=== PATIENT | male | born 1945 | race Caucasian/White ===

== ENCOUNTER 2017-04-02 12:09 | Emergency (ER) | payer MEDICARE, OTHER ==
--- NOTE | 2017-04-02 12:56 | ED Physician Documentation ---
PD HPI OPHTHO - Stated complaint Stated Complaint: R EYE IRRITATION - Chief complaint Chief Complaint: Heent - History obtained from History obtained from: Patient - History of Present Illness Timing - onset: Yesterday Timing - duration: Days (1) Timing - details: Abrupt onset (noted some crescentic peripheral flashes yesterday intermittently on right eye, and today felt that he had a small floater, like a line of darkness at edge upper outer. Less flashes today. Central vision okay, and does not sense a curtain type configuration of the deficit.), Still present Location: Right Associated symptoms: Other (flashes of lights intermittently at upper outer peripheral right eye.). No: Redness, Loss of vision, Headache Contributing factors: No: FB, Blunt trauma, Wears contacts Similar symptoms before: Has not had sx before Recently seen: Not recently seen Review of Systems Constitutional: denies: Fever, Chills Eyes: denies: Loss of vision, Decreased vision, Photophobia, Discharge, Irritation Nose: denies: Rhinorrhea / runny nose, Congestion Throat: denies: Sore throat Respiratory: denies: Cough Neurologic: denies: Focal weakness, Numbness, Headache, Head injury PD PAST MEDICAL HISTORY - Past Medical History Past Medical History: Yes Cardiovascular: Hypertension, High cholesterol Respiratory: Other Neuro: Seizure disorder Other Past Medical History: seasonal allergies. - Past Surgical History Past Surgical History: Yes General: Other - Present Medications Home Medications: Ambulatory Orders Medication Instructions Recorded Confirmed Atorvastatin [Lipitor] 10 mg ORAL DAILY 04/02/17 04/02/17 Ezetimibe [Zetia] 10 mg PO QD 04/02/17 04/02/17 Fluticasone [Flonase] 1 sprays AMY DAILY 04/02/17 04/02/17 Tadalafil [Cialis] 5 mg PO DAILY 04/02/17 04/02/17 Tamsulosin [Flomax] 0.4 mg PO ONCE 04/02/17 04/02/17 carBAMazepine [TEGretol] 100 mg PO BID 04/02/17 04/02/17 - Allergies Allergies/Adverse Reactions: Allergies Allergy/AdvReac Type Severity Reaction Status Date / Time Penicillins Allergy Unknown Verified 04/02/17 12:19 Sulfa (Sulfonamide Allergy Rash Verified 04/02/17 12:19 Antibiotics) - Social History Does the pt smoke?: No Smoking Status: Never smoker Does the pt drink ETOH?: Yes ETOH Use: Beer, Liquor Does the pt have substance abuse?: No - Immunizations Immunizations are current?: Yes - POLST Patient has POLST: No PD ED PE NORMAL - Vitals Vital signs reviewed: Yes - General General: Alert and oriented X 3, No acute distress, Well developed/nourished - HEENT HEENT: PERRL, EOMI, Ears normal, Moist mucous membranes, Pharynx benign PD ED PE EXPANDED - Eyes Eyes: Normal fundi (without dilation, in darkened room, the fundus appears okay to me though lateral edges are harder to see. ). No: Retinal hemorrhage Results - Vitals Vitals: Oxygen O2 Source Room air PD MEDICAL DECISION MAKING - ED course Complexity details: considered differential, d/w patient, d/w network consultant (No Ophtho on site nurse list anymore. Did reach Dr. Estrella private cell who said patient at risk of vitreous detachment but no intervention needed right now. Okay to be seen in office Tuesday, unless gets visual field deficit. ) Departure - Departure Disposition: 01 Home, Self Care Clinical Impression: Peripheral scotoma of right eye, Vitreous detachment of right eye Condition: Stable Record reviewed to determine appropriate education?: Yes Instructions: Flashes and Floaters Follow-Up: Leonard Magana MD [Primary Care Provider] - Aydin Estrella MD [Provider Admit Priv/Credential] - Comments: Rest and take it easy the weekend. Sleep/rest semi-reclined. Return if worse symptoms, otherwise call Dr. Estrella's office Tuesday morning to be seen that day. Tell office that I talked with Dr. Estrella from the ER. Discharge Date/Time: 04/02/17 15:05
[2017-04-02] MEDS ORDERED: PROPARACAINE 0.5% OPHTH DROPS 15 ML EACHEYE STA (12:58)
[2017-04-02] MEDS ORDERED: PROPARACAINE 0.5% OPHTH DROPS 15 ML ONE (13:07)
[2017-04-02 15:05] VITALS: BP 156/76
== END 2017-04-02 15:05 | disposition home or self-care (01) ==
LOC: ED 12:09
DX: H53.451 Other localized visual field defect, right eye (principal); H43.811 Vitreous degeneration, right eye; I10 Essential (primary) hypertension; E78.00 Pure hypercholesterolemia, unspecified
CPT/HCPCS: 99283; J3490